=== PATIENT | male | born 1995 | race Caucasian/White ===

== ENCOUNTER 2017-11-03 10:00 | Emergency (ER) | payer SELFPAY ==
[~2017-11-03] VITALS: Ht 177.8 cm; Wt 79.4 kg
[2017-11-03 10:08] VITALS: Ht 177.8 cm; Wt 79.4 kg
[2017-11-03 11:26] LABS: CALCIUM 9.3 mg/dL (8.5-10.1); CARBON DIOXIDE 28.5 mmol/L (21-32); CHLORIDE SERUM 104 mmol/L (98-107); CREATININE SERUM 1.3 mg/dL (0.7-1.3); GFR1 > 60 mL/min; GLUCOSE SERUM 100 mg/dL (74-106); POTASSIUM SERUM 4.1 mmol/L (3.5-5.1); SODIUM SERUM 138 mmol/L (136-145)
[2017-11-03 11:30] LABS: ALBUMIN 4.2 g/dL (3.4-5.0); ALKALINE PHOSPHATASE 59 U/L (46-116); ALT/SGPT 29 U/L (16-63); AMYLASE 38 U/L (25-115); AST/SGOT 24 U/L (15-37); BILIRUBIN TOTAL 2.23 mg/dL (0.20-1.00); LIPASE 79 IU/L (73-393); TOTAL PROTEIN, SERUM 7.4 g/dL (6.4-8.2)
[2017-11-03 11:35] LABS: BASOPHIL % 0.7 % (0-2); PLATELET COUNT 291 x10^3mcL (130-400); RED CELL DISTRIBUTION WIDTH 12.3 % (11.5-14.5)
[2017-11-03 13:28] VITALS: BP 99/66
== END 2017-11-03 13:28 | disposition home or self-care (01) ==
LOC: ED 10:00
PROVIDERS: Specialist
DX: R10.84 Generalized abdominal pain (principal); F12.10 Cannabis abuse, uncomplicated
CPT/HCPCS: 83880; J1885; J2405; J3010; J7030; Q9967